=== PATIENT | female | born 1955 | race Caucasian/White ===

== ENCOUNTER 2019-02-08 13:08 | Outpatient (CLI) | payer OTHER ==
[2019-02-08 15:11] VITALS: BP 110/70
--- NOTE | 2019-02-08 15:11 | CONSULTATION NOTE ---
Information from patient questionnaire entered by Faustina Hastings. I have reviewed and concur with the information entered by Faustina Hastings. This document represents the service I personally performed and the decisions made by me, Lakesha Mann MD, [facility]. - History of Present Illness Chief Complaint: Unrefreshed sleep, Fatigue, Other (trouble falling asleep) The patient reprts that her oxygen saturation fell low after a recent surgery. She tells me that she normally goes to bed around 9:30-10:00 pm, and it takes her approximately 60-120 minutes to fall asleep. She has not been told that she snores loudly and irregularly at night. She has not been observed to stop breathing in her sleep. Her bed partner can still sleep in the same bed. She can recall waking up on the average of 3 times during the night. Most of the time she wakes up because of having to use the restroom and unknown reasons. She has never awakened because of her own snoring, choking, and having to gasp for air. There is not a lot of tossing and turning in her sleep. Generally there is no recollection of dreams. There is no somniloquy (sleep talking) or somnambulism (sleep walking). She usually wakes up at 5:30-7:00am and feeling r efreshed. She usually does have a morning headache. During the day she complains of feeling sleepy and fatigued. She has never fallen asleep while driving nor has any accident due to sleepiness. She usually does not take naps during the day. If she naps, upon falling asleep during the day she denies having vivid dreams. She reports having impaired concentration during the day. She has never experienced sleep paralysis, cataplexy, or symptoms of restless leg syndrome. 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 Patient is and lives in [place]. Smoked in the past 12 months: Yes Cigarettes per day (20/pack): 30 (20-40 per day) Years of smokin Quit Date: 1987 Smoking Pack Years: 21.0 Alcohol use: Yes Amount and frequency: very rarely Caffeine use: Yes Amount and frequency: 2 cups/morning - Family History Family history of sleep disordered breathing: Yes Family Hx Sleep Apnea: Father: Snoring - Review of Systems Cardiovascular: reports: high blood pressure Respiratory: denies: shortness of breath, wheeze, sputum production, chronic cough, other: Gastrointestinal: reports: heartburn Urinary: denies: incontinence, frequency, urgency, impotence, other: Neurological: denies: headaches, seizure, head trauma, disorientation, speech dysfunction, gait or balance problems, fainting or unconsciousness, other: Psychiatric: reports: anxiety, depression Ear/Nose/Throat: reports: sinus problems, tonsillectomy, wisdom teeth removed. denies: nasal congestion Musculoskeletal: reports: joint pain, neck pain, back pain - Physical Examination Vital signs obtained and documented by: Dr. Mann Blood Pressure: 110/70 Cuff size: long Heart Rate: 60 O2 Saturation: 98 Height: 5 ft 4 in Weight (kg): 117.934 kg Body Mass Index: 44.6 BMI Classification: Class 3 Mood/affect: normal HEENT: No craniofacial malformation Nostrils: patent to airflow Turbinates: normal Septum: midline Mouth and throat: narrow oropharynx (Mallampati Class III) Soft palate: long Hard palate: normal Uvula: normal Tongue: normal in size Tonsils: absent bilaterally Chin and jaw: normal size and position Neck: normal w/o lymphadenopathy or thyromegaly Heart: regular rate and rhythm Lungs: clear bilaterally Abdomen: soft Extremities: no edema or clubbing Neurologic: intact - Impression 1. Suspected Obstructive Sleep Apnea-Hypopnea Syndrome, as suggested by a history of gasping or choking in sleep, morning headache, frequent awakening during the night, unrefreshed sleep, and excessive daytime sleepiness. Narrow oropharynx and obesity are common predisposing factors for obstructive sleep apnea-hypopnea syndrome. Obstructive sleep apnea can also cause hypertension. I recommend proceeding to polysomnography to confirm the diagnosis and to assess severity. I informed the patient of what the sleep studies involve and after some discussion, obtained agreement to proceed. The pathophysiology of obstructive sleep apnea-hypopnea syndrome was discussed with the patient and health risks of cardiovascular and cerebrovascular disease if not treated. 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 Patient agreed to plan. - Plan Schedule polysomnography and return in 1-2 weeks after the study to discuss result and initiate therapy. Avoid long distance driving or driving when feeling sleepy. Avoid alcohol, sedative and muscle relaxant around bedtime. Attempt to lose weight. Review instructions provided by trained office staff on how to prepare for the sleep study. Return for follow-up after sleep study completed. I spent 100% of this 15 minute visit face to face with the patient with greater than 50% of this was spent time counseling the patient and coordination of care.
== END 2019-02-08 13:09 | disposition home or self-care (01) ==
LOC: SC 13:08
PROVIDERS: ATTEND Internal Medicine Pulmonary Disease
DX: G47.10 Hypersomnia, unspecified (principal); G47.8 Other sleep disorders; R51 Headache
CPT/HCPCS: 99203; 99212

== ENCOUNTER 2019-04-15 19:32 | Outpatient (CLI) | payer OTHER | END 2019-04-15 19:33 | disposition home or self-care (01) | LOC: SC 19:32 | PROVIDERS: ATTEND Internal Medicine Pulmonary Disease | DX: G47.33 Obstructive sleep apnea (adult) (pediatric) (principal); E66.9 Obesity, unspecified; Z68.41 Body mass index [BMI] 40.0-44.9, adult | CPT/HCPCS: 95810 ==

== ENCOUNTER 2019-06-06 10:36 | Outpatient (CLI) | payer OTHER ==
--- NOTE | 2019-06-06 11:43 | SLEEP CARE CONSULTATION ---
Information from patient questionnaire entered by Faustina Hastings. I have reviewed and concur with the information entered by Faustina Hastings. This document represents the service I personally performed and the decisions made by me, Gertrudis Harvey RN, MSN, [employer]. History of Present Illness Initial [place] Sleepiness Scale score: 3 Current [place] Sleepiness Scale score: 1 Additional HPI information: DEMOND MCCALLUM returns for follow up of the recently performed polysomnography and informed of findings. I explained the pathophysiology behind obstructive sleep apnea. We then spent quite a bit of time discussing different treatment options. For mild obstructive sleep apnea, surgery and oral appliance are alternatives to nasal CPAP therapy but in moderate or severe cases, nasal CPAP is the most effective and reliable treatment. I reviewed the impact of weight changes on sleep apnea and strongly recommended losing weight. After some discussion, the patient opted to go with the nasal CPAP therapy. Nasal autoCPAP set at [id number] will be ordered with rationale explained. A manual titration study will be ordered if unable to find optimal pressure with office adjustments. I explained how CPAP machine works with sample devices Respironics Dreamstation and [employer] [id number] and what to expect when using the machine. Using CPAP every night in order to get used to it was emphasized. Patient advised to put CPAP mask on before getting into bed so as not to fall asleep without CPAP. To assist acclimation to CPAP use, it could also be used for a short time during day while reading or watching TV. The patient was instructed to call the CPAP supplier to discuss any mechanical problem that may occur. If the mask given is uncomfortable or is difficult to keep on through the night even with adjustment, contact the CPAP supplier as many will replace with another mask style if notified before 30 days. If snoring or perceives is not getting enough air or too much air from the machine, notify this office. [facility] patient education PAP tips reviewed and given to patient. She would like the Respironics device. Patient counseled not drink alcohol less than 4 hours before bedtime as it can increase snoring and apnea. Patient was cautioned about risks of drowsy driving until sleepiness symptoms resolve. Patient denies drowsy driving. [facility] patient education on snoring and sleep apnea given and reviewed. Sleep Study - Polysomnography Polysomnography findings: The quality of the study is good. The patient had normal sleep efficiency. The sleep architecture was abnormal for mild sleep fragmentation and minimally reduced amount of time spent in REM sleep. Respiratory monitoring showed mild obstructive sleep apnea-hypopnea (AHI = 9.4) associated with frequent arousals, oxyhemoglobin desaturation and mild hypoxia (ender oxygen saturation of 86%). The respiratory events occurred mainly during supine sleep (supine AHI = 20.3; non-supine = 5.46). Snore was light in intensity. There was no significant periodic leg movement of sleep. Cardiac rhythm was normal sinus rhythm without significant arrhythmia. No abnormal behavior (parasomnia) observed during the night. Allergies and Home Medications Known drug allergies: Yes (codiene - other noted surgery) Home medication list reviewed: Yes (stopped chlorthalidone, rantidine / pecid now and vitamin D and fish oil ) Allergy and home medication list: see previous visit Review of Systems Review of systems same as previous: No (back pain) Physical Exam Blood Pressure: 118/70 Cuff size: long Heart Rate: 63 O2 Saturation: 96 Height: 5 ft 4 in Weight: 272 lb 9.6 oz Body Mass Index: 46.7 BMI Classification: Obesity Class 3 Impression and Plan 1. Obstructive Sleep Apnea-Hypopnea Syndrome, mild but moderate supine position, with lowest oxygen saturation of 86%. Obviously this is the cause of the patients symptoms of unrefreshed sleep, and fatigue. Positive pressure therapy could benefit her hypertension. As mentioned above, the patient will be started on nasal autoCPAP therapy with pressure set at 4-15 cmH2O. A manual titration study will be completed if unable to find optimal treatment pressure with office adjustments. Compliance guidelines also reviewed. A copy of compliance guidelines will be given for reference at check out. Because the apnea is more severe supine, I instructed to avoid sleeping supine using pillow positioning until able to start CPAP use. Since she prefers to sleep prone, a CPAP pillow sample was shown. This and other styles can be found online. * * Nasal auto CPAP therapy, pressure at 4-15 cm H2O. * DReamstation preferred by patient * Consider CPAP pillow * Attempt to lose weight. * Avoid alcohol consumption near bedtime. * Avoid supine sleep until using CPAP. * The patient is again cautioned about driving until sleepiness completely resolves. * Return one month after CPAP obtained. I will assess response to therapy and compliance at that time. I spent 100% of this 35 minute visit face to face with the patient with greater than 50% of this was spent time counseling the patient and coordination of care.
[2019-06-06 11:48] VITALS: BP 118/70
== END 2019-06-06 10:37 | disposition home or self-care (01) ==
LOC: SC 10:36
PROVIDERS: ATTEND Nurse Practitioner Family
DX: G47.33 Obstructive sleep apnea (adult) (pediatric) (principal); E66.9 Obesity, unspecified; Z68.42 Body mass index [BMI] 45.0-49.9, adult
CPT/HCPCS: 99212; 99214